=== PATIENT | male | born 1970 ===

== ENCOUNTER 2021-04-06 21:39 | Emergency (ER) | payer SELFPAY ==
[2021-04-06 21:48] VITALS: PULSE 79; RESP 18; TEMP 98.3
--- NOTE | 2021-04-06 22:40 | ED ---
Recheck HPI - General Chief Complaint: Recheck/Abnormal Lab/Rx Stated Complaint: Need covid test for re-entry to [place] Source: patient Mode of arrival: ambulatory Limitations: no limitations - History of Present Illness Initial Comments: Patient presents to the emergency department today for COVID-19 testing in order to cross border into [place]. Denies any current symptoms or recent exposures. Patient denies need for further medical screening or examination. Review of Systems ROS Statement: Those systems with pertinent positive or pertinent negative responses have been documented in the HPI. ROS Other: All systems not noted in ROS Statement are negative. Past Medical History Past Medical History: Hyperlipidemia, Hypertension Additional Past Medical History / Comment(s): gout History of Any Multi-Drug Resistant Organisms: None Reported Past Surgical History: No Surgical Hx Reported Past Psychological History: No Psychological Hx Reported Smoking Status: Never smoker Past Alcohol Use History: Occasional Past Drug Use History: None Reported General Exam Limitations: no limitations General appearance: alert, in no apparent distress, other (Physical well- developed, well-nourished adult male patient in no acute distress.) Respiratory exam: Present: normal lung sounds bilaterally. Absent: respiratory distress, wheezes, rales, rhonchi, stridor Cardiovascular Exam: Present: regular rate, normal rhythm, normal heart sounds. Absent: systolic murmur, diastolic murmur, rubs, gallop, clicks Neurological exam: Present: alert, oriented X3 Skin exam: Present: warm, dry, normal color. Absent: rash Course Vital Signs 04/06/21 04/06/21 21:44 22:46 Temperature 98.3 F Pulse Rate 79 Respiratory 18 Rate Blood Pressure 177/107 161/109 O2 Sat by Pulse 96 Oximetry Medical Decision Making - Medical Decision Making Patient presented for COVID-19 testing in order to cross border into [place]. Did not have any symptoms. Declined any need for further exam or screening. Test results were negative. His blood pressure was elevated in triage, admits to having history of hypertension, did not take his medication today. He is a symptomatic. Patient was given copy of result and discharged. My attending is Dr. Ramirez. - Lab Data Lab Results 04/06/21 Range/Units 21:48 Coronavirus (PCR) Not Detected (Not Detectd) Disposition Clinical Impression: Encounter for screening for COVID-19 Disposition: HOME SELF-CARE Condition: Good Instructions (If sedation given, give patient instructions): Coronavirus Disease 2019 (COVID-19) Is patient prescribed a controlled substance at d/c from ED?: No Referrals: None,Stated [Primary Care Provider] - 1-2 days
[2021-04-06 23:13] VITALS: BP 161/109
== END 2021-04-06 23:15 | disposition home or self-care (01) ==
LOC: EC 21:39
DX: Z20.822 Contact with and (suspected) exposure to COVID-19 (principal); I10 Essential (primary) hypertension
CPT/HCPCS: 87635; 99283